=== PATIENT | male | born 1980 | race Two or more races ===

== ENCOUNTER 2019-04-10 19:18 | Emergency (ER) | payer BC ==
[2019-04-10] MEDS ORDERED: Ketorolac 30 MG/ML SDV IM ONE (20:08)
--- NOTE | 2019-04-10 20:13 | EDM.PDOC ---
ED HPI GENERAL MEDICAL PROBLEM - General Chief Complaint: Back Pain or Injury Stated Complaint: BACK PAIN Time Seen by Provider: 04/10/19 20:09 Source of Information: Reports: Patient History Limitations: Reports: No Limitations - History of Present Illness INITIAL COMMENTS - FREE TEXT/NARRATIVE: states was reaching out for a socket felt "pop" in low back then pain, hard to stand and walk. denies pain rediation. Lower Mid-Posterior Back Pain Score (Numeric/FACES): 4 - Related Data Allergies Allergy/AdvReac Type Severity Reaction Status Date / Time No Known Allergies Allergy Verified 04/10/19 19:51 Home Meds: Home Meds . [No Known Home Meds] 04/10/19 [History] Social & Family History - Tobacco Use Smoking Status *Q: Never Smoker - Caffeine Use Caffeine Use: Reports: Energy Drinks - Recreational Drug Use Recreational Drug Use: No ED ROS GENERAL - Review of Systems Review Of Systems: ROS reveals no pertinent complaints other than HPI. ED EXAM,LOWER BACK PAIN/INJURY - Physical Exam Exam: See Below Exam Limited By: No Limitations General Appearance: Alert, WD/WN, Mild Distress, Moderate Distress, Other (pain) Ears: Hearing Grossly Normal Throat/Mouth: Normal Voice, No Airway Compromise Head: Atraumatic Neck: Non-Tender, Full Range of Motion Respiratory/Chest: No Respiratory Distress Cardiovascular: Regular Rate, Rhythm GI/Abdominal: Soft, Non-Tender Back Exam: Muscle Spasm, Paraspinal Tenderness, Other (bilateral L4-5-S1 region without radiation) Neurological: Alert, No Motor/Sensory Deficits, Oriented x 3 Psychiatric: Flat Affect Skin Exam: Warm, Dry, Normal Color Lymphatic: No Adenopathy Course - Vital Signs Last Recorded V/S: Last Vital Signs Temp 36.6 C 04/10/19 22:00 Pulse 82 04/10/19 22:00 Resp 16 04/10/19 22:00 BP 133/82 04/10/19 22:00 Pulse Ox 99 04/10/19 22:00 - Orders/Labs/Meds Meds: Medications Discontinued Medications Generic Name Dose Route Start Last Admin Trade Name Freq PRN Reason Stop Dose Admin Hydrocodone Bitart/Acetaminophen 1 tab 04/10/19 21:53 04/10/19 21:59 [place] 325-10 Mg PO 04/10/19 21:54 1 tab ONETIME ONE Administration Ketorolac Tromethamine 30 mg 04/10/19 20:08 04/10/19 20:15 Toradol IM 04/10/19 20:09 30 mg ONETIME ONE Administration Orphenadrine Citrate 60 mg 04/10/19 21:30 04/10/19 21:26 Norflex IM 60 mg Q12H FRED Administration - Re-Assessments/Exams Free Text/Narrative Re-Assessment/Exam: 04/10/19 21:55 results discussed with pt & spouse Departure - Departure Time of Disposition: 22:00 Disposition: Home, Self-Care 01 Condition: Good Clinical Impression: Lumbar paraspinal muscle spasm - Discharge Information Instructions: Muscle Cramps and Spasms, [id number] Referrals: PCP,None [Primary Care Provider] - Forms: ED Department Discharge Additional Instructions: 1) avoid bending lifting straining next 48 hours 2) try ice or heat to sore areas 3) see clinic tomorrow for MRI SCAN if not significantly better rx given; flexeril 10mg tid prn spasm x 12 vicodon 5/325mg bid prn pain x 6
[2019-04-10] MEDS ORDERED: Acetaminophen/HYDROcodone 325-10 MG Tab PO ONE (21:53)
== END 2019-04-10 22:05 | disposition home or self-care (01) ==
LOC: DL.ED 19:18
DX: M62.830 Muscle spasm of back (principal)
CPT/HCPCS: 72131; 96372; 99283; A9270; J1885; J2360

== ENCOUNTER 2021-07-16 07:38 | Emergency (ER) | payer OTHER ==
[2021-07-16 09:08] LABS: CORONAVIRUS COVID-19 NAA POSITIVE (NEGATIVE)
[2021-07-16] MEDS ORDERED: Acetaminophen 325 MG Tab PO ONE (09:23)
== END 2021-07-16 09:37 | disposition home or self-care (01) ==
LOC: DL.ED 07:38
DX: U07.1 COVID-19 (principal); J10.1 Influenza due to other identified influenza virus with other respiratory manifestations
CPT/HCPCS: 0240U; 99284; A9270; 99283

== ENCOUNTER 2021-11-05 19:07 | Emergency (ER) | payer BC ==
[2021-11-05] MEDS ORDERED: Acetaminophen/HYDROcodone 325-10 MG Tab PO ONE ×2 (19:08→22:48)
[2021-11-05] MEDS ORDERED: Iopamidol 612 MG/ML 100 ML Bottle IVPUSH ONE (20:06)
[2021-11-05 20:08] LABS: ANION GAP 17.5 mEq/L (7-13); CHLORIDE,CL 97 mmol/L (98-107); SODIUM,NA 136 mmol/L (136-145)
[2021-11-05 20:28] LABS: CORONAVIRUS COVID-19 NAA NEGATIVE (NEGATIVE)
[2021-11-05] MEDS ORDERED: Ciprofloxacin 500 MG Tab PO ONE (22:48)
[2021-11-05] MEDS ORDERED: metroNIDAZOLE 250 MG Tab PO ONE (22:48)
[2021-11-05] MEDS ORDERED: Acetaminophen/HYDROcodone 325-10 MG Tab ONE (23:10)
== END 2021-11-05 23:34 | disposition home or self-care (01) ==
LOC: DL.ED 19:07
DX: K57.32 Diverticulitis of large intestine without perforation or abscess without bleeding (principal); N28.89 Other specified disorders of kidney and ureter; Z20.822 Contact with and (suspected) exposure to COVID-19
CPT/HCPCS: 0240U; 36415; 74177; 80053; 82150; 83605; 83690; 83735; 85025; 87040; 99284; A9270; Q9967